=== PATIENT | female | born 1955 | race Caucasian/White ===

== ENCOUNTER 2017-08-12 16:04 | Emergency (ER) | payer SELFPAY ==
[2017-08-12] MEDS ORDERED: Glucagon,Human Recombinant 1 MG Vial IM ONE (16:39)
[2017-08-12] MEDS ORDERED: Sodium Chloride 0.9% 10 ML Syringe FLUSH PRN (16:41)
[2017-08-12] MEDS ORDERED: Nitroglycerin 0.4 MG Tab.SL SL ONE (16:41)
--- NOTE | 2017-08-12 16:44 | EDM.PDOC ---
ED HPI GENERAL MEDICAL PROBLEM - General Chief Complaint: Gastrointestinal Problem Stated Complaint: CANNOT KEEP FOOD OR WATER DOWN Time Seen by Provider: 08/12/17 16:32 Source of Information: Reports: Patient, Family, RN Notes Reviewed History Limitations: Reports: No Limitations - History of Present Illness INITIAL COMMENTS - FREE TEXT/NARRATIVE: 61-year-old female presents emergency department day complaint of chicken stuck in her throat, she was eating chicken last night felt it get stuck while she was trying to swallow is still able to swallow her secretions but any water comes right back up. Has no abdominal pain no nausea no shortness of breath or chest pain Middle Epigastric Pain Score (Numeric/FACES): 5 - Related Data Allergies Allergy/AdvReac Type Severity Reaction Status Date / Time Penicillins Allergy Intermediate Rash Verified 08/12/17 16:18 benzoin Allergy Rash Verified 08/12/17 16:18 Home Meds: Home Meds Aspirin [Rowena Chewable Aspirin] 81 mg PO DAILY 07/07/13 [History] Cyanocobalamin (Vitamin B-12) [Vitamin B-12] 1,000 mcg PO DAILY 07/07/13 [ History] Furosemide [Lasix] 20 mg PO ASDIRECTED 07/07/13 [History] Omeprazole 20 mg PO DAILY 07/07/13 [History] Simvastatin [Zocor] 20 mg PO BEDTIME 07/07/13 [History] Venlafaxine [Effexor XR] 150 mg PO DAILY 07/07/13 [History] SUMAtriptan 100 mg PO BID PRN 07/13/13 [History] Cyclobenzaprine [Flexeril] 10 mg PO Q6H PRN #30 tablet 08/05/15 [Rx] Bacitracin [Bacitracin Oint] 0 gm TOP Q4H PRN #0 tube 08/25/15 [Rx] Ondansetron [Zofran] 4 mg PO Q4H PRN 10/02/15 [History] Scopolamine [Transderm-Scop] 1 patch TOP Q72H 10/02/15 [History] traMADol [Ultram] 50 - 100 mg PO Q6H PRN 10/02/15 [History] Acetaminophen/HYDROcodone [Bates 325-5 MG] 1 - 2 tab PO Q4H PRN #50 tab [Rx] Magnesium Oxide 400 mg PO DAILY #30 tab 10/11/15 [Rx] Potassium Chloride 20 meq PO DAILY #30 tablet.er 10/11/15 [Rx] Past Medical History HEENT History: Reports: Impaired Vision Other HEENT History: wear glasses for close work and reading Cardiovascular History: Reports: Heart Murmur Gastrointestinal History: Reports: Bowel Obstruction, GERD, Hiatal Hernia Genitourinary History: Reports: UTI, Recurrent [employer] History: Reports: , Spontaneous Musculoskeletal History: Reports: Arthritis, Back Pain, Chronic Neurological History: Reports: Migraines Psychiatric History: Reports: Depression Endocrine/Metabolic History: Reports: Obesity/BMI 30+, Other (See Below) Other Endocrine/Metabolic History: diabetic befor rny Hematologic History: Reports: Anemia, Iron Deficiency Dermatologic History: Reports: Psoriasis - Infectious Disease History Infectious Disease History: Reports: MRSA Other Infectious Disease History: pt states would not know - Past Surgical History GI Surgical History: Reports: Appendectomy, Bariatric Procedure, Cholecystectomy , Colon, Colonoscopy, EGD, Hernia, Abdominal, Lysis of Adhesions, Polypectomy, Small Bowel, Other (See Below) Female Surgical History: Reports: Section, Tubal Ligation Musculoskeletal Surgical History: Reports: Other (See Below) Dermatological Surgical History: Reports: None Social & Family History - Family History HEENT: Reports: Hearing Impairment Other HEENT Family History: mom, brother and sister with hearing aids Cardiac: Reports: Bypass, CAD, High Cholesterol, Hypertension, VT, Stent Respiratory: Reports: Sleep Apnea GI: Reports: None : Reports: None OBGYN: Reports: Other (See Below) Other OBGYN Family History: mom had a hysterectomy Musculoskeletal: Reports: Arthritis Neurological: Reports: Alzheimers Disease, Migraines Psychiatric: Reports: Depression Endocrine/Metabolic: Reports: Diabetes, type II, Hypothyroidism Hematologic: Reports: None Dermatologic: Reports: Psoriasis Oncologic: Reports: Colon, Thyroid - Tobacco Use Smoking Status *Q: Unknown Ever Smoked Second Hand Smoke Exposure: No - Alcohol Use Days Per Week of Alcohol Use: 0 - Recreational Drug Use Recreational Drug Use: No ED ROS GENERAL - Review of Systems Review Of Systems: See Below Constitutional: Reports: No Symptoms HEENT: Reports: Other (Difficulty swallowing) Respiratory: Reports: No Symptoms Cardiovascular: Reports: No Symptoms GI/Abdominal: Reports: No Symptoms ED EXAM, GI/ABD - Physical Exam Exam: See Below Text/Narrative:: I did do an experiment with ice water she took about 2 swallows within approximately 1 minute she had emesis of clear liquid Exam Limited By: No Limitations General Appearance: Alert, WD/WN, No Apparent Distress Respiratory/Chest: No Respiratory Distress, Lungs Clear, Normal Breath Sounds, No Accessory Muscle Use Cardiovascular: Regular Rate, Rhythm, No Murmur GI/Abdominal Exam: Soft, Non-Tender Course - Vital Signs Last Recorded V/S: Last Vital Signs Temp 97.3 F 08/12/17 16:17 Pulse 84 08/12/17 16:17 Resp 18 08/12/17 16:17 BP 108/76 08/12/17 17:19 Pulse Ox 97 08/12/17 16:17 - Orders/Labs/Meds Orders: Active Orders 24 hr Category Date Time Status Peripheral IV Care [RC] . DIRECTED Care 08/12/17 16:41 Active Sodium Chloride 0.9% [Saline Flush] Med 08/12/17 16:41 Active 10 ml FLUSH ASDIRECTED PRN Peripheral IV Insertion Adult [OM.PC] Urgent Oth 08/12/17 16:41 Ordered Medication Orders Sodium Chloride (Saline Flush) 10 ml FLUSH ASDIRECTED PRN PRN Reason: Keep Vein Open Last Admin: 08/12/17 17:19 Dose: 10 ml Meds: Medications Generic Name Dose Route Start Last Admin Trade Name Freq PRN Reason Stop Dose Admin Sodium Chloride 10 ml 08/12/17 16:41 08/12/17 17:19 Saline Flush FLUSH 10 ml ASDIRECTED PRN Administration Keep Vein Open Discontinued Medications Generic Name Dose Route Start Last Admin Trade Name Freq PRN Reason Stop Dose Admin Glucagon 1 mg 08/12/17 16:39 08/12/17 17:19 Glucagen IM 08/12/17 16:40 1 mg ONETIME ONE Administration Nitroglycerin 0.4 mg 08/12/17 16:41 08/12/17 17:19 Nitrostat SL 08/12/17 16:42 0.4 mg ONETIME ONE Administration Departure - Departure Time of Disposition: 17:58 Disposition: Home, Self-Care 01 Condition: Good Clinical Impression: Dysphagia Qualifiers: Dysphagia type: esophageal phase Qualified Code(s): R13.10 - Dysphagia, unspecified - Discharge Information Referrals: Judy Apodaca PA-C [Primary Care Provider] - Forms: ED Department Discharge Additional Instructions: Small amounts of food per time, Please followup with your primary care provider in 3-5 days if not better, please call return to the emergency department with worsening of symptoms. - My Orders Last 24 Hours: My Active Orders 08/12/17 16:41 Peripheral IV Care [RC] . DIRECTED Sodium Chloride 0.9% [Saline Flush] 10 ml FLUSH ASDIRECTED PRN Peripheral IV Insertion Adult [OM.PC] Urgent - Assessment/Plan Last 24 Hours: My Active Orders 08/12/17 16:41 Peripheral IV Care [RC] . DIRECTED Sodium Chloride 0.9% [Saline Flush] 10 ml FLUSH ASDIRECTED PRN Peripheral IV Insertion Adult [OM.PC] Urgent Plan: Assessment Acuity = acute Site and laterality = dysphagia Etiology = probable food bolus Manifestations = none Location of injury = Home Lab values = none Plan she was able to clear this with the combination glucago and nitroglycerin and [employer] she was able to drink without difficulty, plan is to follow-up with primary care 3-5 days if no improvement This note was dictated using [employer] voice recognition software please call with any questions on syntax or zenon.
[2017-08-12 18:05] VITALS: BP 101/60
== END 2017-08-12 18:10 | disposition home or self-care (01) ==
LOC: JP.ED 16:04
DX: R13.10 Dysphagia, unspecified (principal); E66.9 Obesity, unspecified; E11.9 Type 2 diabetes mellitus without complications; K21.9 Gastro-esophageal reflux disease without esophagitis; F32.9 Major depressive disorder, single episode, unspecified; Z88.0 Allergy status to penicillin; Z88.8 Allergy status to other drugs, medicaments and biological substances; Z79.899 Other long term (current) drug therapy; Z79.82 Long term (current) use of aspirin
CPT/HCPCS: 96372; 99283; 99284; A9270; J1610; J7050

== ENCOUNTER 2017-10-07 08:03 | Day surgery (SDC) | payer OTHER ==
[2017-10-07] MEDS ORDERED: Lactated Ringers 1,000 ML IV ONE (08:30)
[2017-10-07] MEDS ORDERED: Glycopyrrolate 0.2 MG/ML 2 ML SDV IVPUSH ONE (09:00)
[2017-10-07] MEDS ORDERED: MVI, Adult with Vitamin K 10 ML, Thiamine 100 MG, Chromium/Copper/Mang/Selen/Zn 1 ML in... IV ONE ×4 (09:30)
[2017-10-07] MEDS ORDERED: Propofol 200 MG/20 ML SDV ONE (09:30)
[2017-10-07] MEDS ORDERED: Midazolam 1 MG/ML 2 ML SDV ONE (09:30)
[2017-10-07] MEDS ORDERED: fentaNYL 100 MCG/2 ML SDV ONE (09:30)
[2017-10-07] MEDS ORDERED: Cyanocobalamin (Vitamin B12) 1,000 MCG/ML SDV IM ONE (10:30)
[2017-10-07 11:39] VITALS: BP 102/67
--- NOTE | 2017-10-14 10:59 | OR ---
DATE OF PROCEDURE: 10/07/2017 PREOPERATIVE DIAGNOSIS: Postprandial upper abdominal pain. POSTOPERATIVE DIAGNOSIS: Postprandial upper abdominal pain with known normal upper GI endoscopic examination status post Hannah-en-Y gastric bypass. OPERATIVE PROCEDURE: Upper GI endoscopy. ANESTHESIA: IV sedation. INDICATION FOR PROCEDURE: A 62-year-old female presenting with some ongoing postprandial upper abdominal pain. The plan is to proceed with an upper GI endoscopy with biopsies and/or dilation as indicated. Potential risks including bleeding and perforation were discussed, and the patient wishes to proceed. DETAILS OF THE PROCEDURE: The patient was taken to the operating room, placed in a left lateral decubitus position. IV sedation was administered, after which the upper GI endoscope was passed orally through the length of the esophagus through the gastric pouch and into the gastrojejunostomy roughly 20 cm into the Hannah limb. Overall, the findings were entirely normal status post Hannah-en-Y gastric bypass. There was no inflammation, stricturing; no retained food or fluid within the GI tract examined. The scope was then withdrawn. The above findings reconfirmed, and the procedure then concluded. The patient most likely is having some symptoms of a partial small bowel obstruction related to adhesions and the plan will be to have the patient start with a regular low-residue diet, which may be helpful in that regard. Otherwise, she will be following with Judy Apodaca in 2 months. She does have a symptomatic left inguinal hernia which once she establishes some trend we will likely repair. This is the case, we certainly would be preferring not to do any additional GI tract surgery as she is presently status post with a fairly short functioning small bowel. Prashanth Gonzalez MD /[id number]
== END 2017-10-07 12:00 | disposition home or self-care (01) ==
LOC: JP.SDS 08:03
PROVIDERS: ATTEND Surgery
DX: R10.10 Upper abdominal pain, unspecified (principal); Z98.84 Bariatric surgery status; K40.90 Unilateral inguinal hernia, without obstruction or gangrene, not specified as recurrent; K21.9 Gastro-esophageal reflux disease without esophagitis
CPT/HCPCS: 43235; J2250; J2704; J3010; J3411; J3420; J7120; J3490

== ENCOUNTER 2017-11-21 12:27 | Observation (INO) | payer MEDICAID ==
--- NOTE | 2017-11-21 14:06 | EDM.PDOC ---
ED HPI GENERAL MEDICAL PROBLEM - General Chief Complaint: Gastrointestinal Problem Stated Complaint: CAN'T EAT OR DRINK ANYTHING Time Seen by Provider: 11/21/17 12:49 Source of Information: Reports: Patient, Family, RN Notes Reviewed History Limitations: Reports: No Limitations - History of Present Illness INITIAL COMMENTS - FREE TEXT/NARRATIVE: 62-year-old female presents emergency department today with complaint of difficulty swallowing, known history of gastric bypass she had eaten last night piece of sausage after eating she's had difficulty swallowing she is able to swallow her own secretions but nothing else - Related Data Allergies Allergy/AdvReac Type Severity Reaction Status Date / Time Penicillins Allergy Intermediate Rash Verified 11/21/17 13:43 benzoin Allergy Rash Verified 11/21/17 13:43 Home Meds: Home Meds Aspirin [Rowena Chewable Aspirin] 81 mg PO DAILY 07/07/13 [History] Cyanocobalamin (Vitamin B-12) [Vitamin B-12] 1,000 mcg PO DAILY 07/07/13 [ History] Furosemide [Lasix] 20 mg PO ASDIRECTED 07/07/13 [History] Omeprazole 20 mg PO DAILY 07/07/13 [History] Simvastatin [Zocor] 20 mg PO BEDTIME 07/07/13 [History] Venlafaxine [Effexor XR] 150 mg PO DAILY 07/07/13 [History] SUMAtriptan 100 mg PO BID PRN 07/13/13 [History] Cyclobenzaprine [Flexeril] 10 mg PO Q6H PRN #30 tablet 08/05/15 [Rx] Bacitracin [Bacitracin Oint] 0 gm TOP Q4H PRN #0 tube 08/25/15 [Rx] traMADol [Ultram] 50 - 100 mg PO Q6H PRN 10/02/15 [History] Magnesium Oxide 400 mg PO DAILY #30 tab 10/11/15 [Rx] Potassium Chloride 20 meq PO DAILY #30 tablet.er 10/11/15 [Rx] Acetaminophen [Acetaminophen 8 Hour] 650 mg PO Q6H PRN 10/03/17 [History] Betamethasone Valerate [Valisone 0.1% Crm] 1 gm TOP TID PRN 10/03/17 [History] Calcium Carbonate/Vitamin D3 [Calcium 500 + Vit D 400] 1 each PO DAILY 10/03/17 [History] Cholecalciferol (Vitamin D3) [Vitamin D3] 5,000 unit PO DAILY 10/03/17 [History] Diclofenac Sodium [Voltaren] 2 gm TP BID 10/03/17 [History] Diphenoxylate HCl/Atropine [Lomotil Tablet] 1 each PO BID 10/03/17 [History] Ferrous Fumarate 63 mg PO DAILY 10/03/17 [History] Fluticasone Propionate [Flonase Allergy Relief] 50 mcg NS DAILY 10/03/17 [ History] Hyoscyamine [Levsin] 0.125 mg SL Q4HR PRN 10/03/17 [History] Magnesium Oxide [Magnesium] 400 mg PO BID 10/03/17 [History] PARoxetine [Paxil] 20 mg PO DAILY 10/03/17 [History] Pediatric Multivit #31/Iron/Fa [Gnp Children's Chewables] 1 each PO DAILY [History] Vitamin B Complex [B Complex] 1 each PO DAILY 10/03/17 [History] Past Medical History HEENT History: Reports: Allergic Rhinitis, Impaired Vision Other HEENT History: wear glasses for close work and reading Cardiovascular History: Reports: Heart Murmur, High Cholesterol Gastrointestinal History: Reports: Bowel Obstruction, Chronic Diarrhea, GERD, Hiatal Hernia Genitourinary History: Reports: UTI, Recurrent [employer] History: Reports: , Spontaneous Musculoskeletal History: Reports: Back Pain, Chronic, Osteoarthritis Neurological History: Reports: Migraines Psychiatric History: Reports: Depression Endocrine/Metabolic History: Reports: Diabetes, Type II, Obesity/BMI 30+, Other (See Below) Other Endocrine/Metabolic History: diabetic befor rny Hematologic History: Reports: Anemia, Iron Deficiency Dermatologic History: Reports: Psoriasis - Infectious Disease History Infectious Disease History: Reports: Chicken Pox Other Infectious Disease History: pt states would not know - Past Surgical History HEENT Surgical History: Reports: None Cardiovascular Surgical History: Reports: None GI Surgical History: Reports: Appendectomy, Bariatric Procedure, Cholecystectomy , Colon, Colonoscopy, EGD, Hernia, Abdominal, Lysis of Adhesions, Polypectomy, Small Bowel Female Surgical History: Reports: Section, Tubal Ligation Endocrine Surgical History: Reports: None Neurological Surgical History: Reports: None Musculoskeletal Surgical History: Reports: Other (See Below) Other Musculoskeletal Surgeries/Procedures:: toe surgery Dermatological Surgical History: Reports: None Social & Family History - Family History HEENT: Reports: Hearing Impairment Other HEENT Family History: mom, brother and sister with hearing aids Cardiac: Reports: Bypass, CAD, High Cholesterol, Hypertension, CA, Stent Respiratory: Reports: Sleep Apnea GI: Reports: None : Reports: None OBGYN: Reports: Other (See Below) Other OBGYN Family History: mom had a hysterectomy Musculoskeletal: Reports: Arthritis Neurological: Reports: Alzheimers Disease, Migraines Psychiatric: Reports: Depression Endocrine/Metabolic: Reports: Diabetes, type II, Hypothyroidism Hematologic: Reports: None Dermatologic: Reports: Psoriasis Oncologic: Reports: Colon, Thyroid - Tobacco Use Smoking Status *Q: Never Smoker - Caffeine Use Caffeine Use: Reports: Coffee - Recreational Drug Use Recreational Drug Use: No ED ROS GENERAL - Review of Systems Review Of Systems: See Below Constitutional: Reports: No Symptoms Respiratory: Reports: No Symptoms Cardiovascular: Reports: No Symptoms GI/Abdominal: Reports: Difficulty Swallowing, Nausea, Vomiting : Reports: No Symptoms ED EXAM, GI/ABD - Physical Exam Exam: See Below Text/Narrative:: Could not swallow sit of ice water without vomiting Exam Limited By: No Limitations General Appearance: Alert, WD/WN, No Apparent Distress Respiratory/Chest: No Respiratory Distress, Lungs Clear, Normal Breath Sounds, No Accessory Muscle Use Cardiovascular: Regular Rate, Rhythm, No Murmur GI/Abdominal Exam: Soft, Non-Tender Course - Vital Signs Last Recorded V/S: Last Vital Signs Temp 97.1 F 11/21/17 13:53 Pulse 100 11/21/17 13:53 Resp 16 11/21/17 13:53 BP 116/71 11/21/17 13:53 Pulse Ox 98 11/21/17 13:53 Departure - Departure Time of Disposition: 14:07 Disposition: Admitted As Inpatient 68 Condition: Fair Clinical Impression: Dysphagia Qualifiers: Dysphagia type: esophageal phase Qualified Code(s): R13.10 - Dysphagia, unspecified - Discharge Information Referrals: PCP,None [Primary Care Provider] - - Assessment/Plan Plan: Assessment Acuity = acute Site and laterality = difficulty swallowing Etiology = unclear etiology Manifestations = none Location of injury = Home Lab values = none Plan Called discussed case Dr. Gonzalez general surgery recommended admission followed by EGD with dilation he will evaluate patient in the hospital This note was dictated using [employer] voice recognition software please call with any questions on syntax or grammar.
[2017-11-21] MEDS ORDERED: Acetaminophen 650 MG in Premix Bag 1 BAG IV ONE ×2 (14:08→14:30)
[2017-11-21] MEDS ORDERED: Sodium Chloride 0.9% 10 ML Syringe FLUSH PRN (14:08)
[2017-11-21] MEDS ORDERED: Morphine 2 MG/ML Syringe IVPUSH PRN (14:09)
[2017-11-21] MEDS ORDERED: Ondansetron 4 MG/2 ML SDV IV PRN (14:09)
[2017-11-21] MEDS ORDERED: Hyoscyamine 0.125 MG Tab.SL SL PRN (14:12)
[2017-11-21] MEDS: traMADol 50 MG Tab PO PRN (17:26)
[2017-11-21] MEDS: Magnesium Oxide 400 MG Tab PO SCH (20:19)
[2017-11-21] MEDS ORDERED: Non-Formulary Medication 1 Each (Magnesium Oxide [Magnesium] 400 MG) PO SCH (21:00)
[2017-11-21] MEDS ORDERED: Simvastatin 20 MG Tab PO SCH (21:00)
[2017-11-21] MEDS: Lactated Ringers 1,000 ML IV SCH (23:08)
[2017-11-22] MEDS: traMADol 50 MG Tab PO PRN (04:11)
[2017-11-22] MEDS: Lactated Ringers 1,000 ML IV SCH (07:05)
[2017-11-22] MEDS ORDERED: Pantoprazole 40 MG Tab.CR PO SCH (07:30)
[2017-11-22] MEDS ORDERED: Potassium Chloride 20 MEQ Tab.ER PO SCH (08:00)
[2017-11-22] MEDS ORDERED: Midazolam 1 MG/ML 2 ML SDV ONE (08:02)
[2017-11-22] MEDS ORDERED: fentaNYL 100 MCG/2 ML SDV ONE (08:02)
[2017-11-22] MEDS ORDERED: Propofol 200 MG/20 ML SDV ONE (08:02)
[2017-11-22] MEDS ORDERED: Glycopyrrolate 0.2 MG/ML 2 ML SDV IV ONE (08:30)
[2017-11-22] MEDS ORDERED: Fluticasone Propionate Nasal Spray 16 GM Bottle NASBOTH SCH (09:00)
[2017-11-22] MEDS ORDERED: Magnesium Oxide 400 MG Tab PO SCH (09:00)
[2017-11-22] MEDS ORDERED: PARoxetine 20 MG Tab PO SCH (09:00)
[2017-11-22] MEDS ORDERED: Venlafaxine 75 MG Cap.ER PO SCH (09:00)
[2017-11-22] MEDS ORDERED: Ferrous Sulfate 325 MG Tab PO SCH (09:00)
[2017-11-22] MEDS ORDERED: Vitamin B Complex Tab PO SCH (09:00)
[2017-11-22] MEDS ORDERED: Furosemide 20 MG Tab PO SCH (09:00)
[2017-11-22] MEDS: Magnesium Oxide 400 MG Tab PO SCH (10:50)
[2017-11-22 11:26] VITALS: BP 107/50
--- NOTE | 2017-11-22 15:36 | PN ---
DATE OF SERVICE: 11/22/2017 SUBJECTIVE: The patient was admitted overnight with apparently obstructing food bolus. She was eating some meat which apparently got caught in the area of the gastric pouch and she presented not able to take anything orally. Overnight plan will be to proceed with an upper endoscopy with biopsy, dilation, and/or removal of foreign body as indicated. Potential risks were reviewed with the patient and she wishes to proceed. Her labs look good. We will check a B12, folate, and ferritin level to make sure that there is not something that is needed to be corrected while she is in the hospital. Prashanth Gonzalez MD /[id number]
--- NOTE | 2017-12-01 12:52 | OR ---
DATE OF PROCEDURE: 11/22/2017 PREOPERATIVE DIAGNOSIS: Foreign body lodged at gastrojejunostomy. POSTOPERATIVE DIAGNOSES: Foreign body previously lodged at gastrojejunostomy spontaneously cleared with associated mild stricture of gastrojejunostomy. OPERATIVE PROCEDURE: Upper GI endoscopy with dilation of gastrojejunostomy ([id number]). ANESTHESIA: IV sedation. INDICATION FOR PROCEDURE: The patient was admitted overnight with a meat bolus obstructing her gastrojejunostomy. The plan was to proceed with upper GI endoscopy with removal of the foreign body and biopsies as indicated. The potential risks including bleeding and perforation were discussed, and the patient wishes to proceed. DETAILS OF PROCEDURE: The patient was taken to the operating room and placed in a left lateral decubitus position. IV sedation was administered, after which the upper GI endoscope was passed orally through the length of the esophagus and into the area of the gastric pouch. The fluid bolus which had previously been present was now absent. The patient did have a slight stricturing of the gastrojejunostomy. A Bard gastrointestinal balloon catheter was then centered across the anastomosis and inflated to 54-Bermudian size. This was held in position for 1 minute, after which, the balloon catheter was deflated and withdrawn. There was a very small amount of heme present indicating a slight degree of dilation that occurred. No complications were evident. The scope was then withdrawn and the procedure was then concluded. The patient was taken to the recovery room in a satisfactory condition. Prashanth Gonzalez MD /[id number]
== END 2017-11-22 13:25 | disposition home or self-care (01) ==
LOC: JP.ED 12:27 → JP.MS 14:09
PROVIDERS: ADMIT Surgery; ATTEND Surgery
DX: T18.9XXA Foreign body of alimentary tract, part unspecified, initial encounter (principal); K31.89 Other diseases of stomach and duodenum; J30.9 Allergic rhinitis, unspecified; K21.9 Gastro-esophageal reflux disease without esophagitis; K44.9 Diaphragmatic hernia without obstruction or gangrene; M19.90 Unspecified osteoarthritis, unspecified site; E11.9 Type 2 diabetes mellitus without complications; E66.9 Obesity, unspecified; E78.00 Pure hypercholesterolemia, unspecified; D50.9 Iron deficiency anemia, unspecified; Z79.82 Long term (current) use of aspirin; Z79.899 Other long term (current) drug therapy; Z88.0 Allergy status to penicillin; Z88.8 Allergy status to other drugs, medicaments and biological substances; Z98.84 Bariatric surgery status; Z98.890 Other specified postprocedural states
CPT/HCPCS: 36415; 43245; 80048; 82607; 82728; 82746; 83735; 84100; 85025; 99285; A9270; J0131; J2250; J2405; J2704; J3010; J7120; 99283

== ENCOUNTER 2017-11-24 07:00 | Inpatient (IN) | payer MEDICAID ==
[2017-11-24] MEDS ORDERED: Midazolam 1 MG/ML 2 ML SDV ONE (07:12)
[2017-11-24] MEDS ORDERED: fentaNYL 100 MCG/2 ML SDV ONE (07:12)
[2017-11-24] MEDS ORDERED: Propofol 200 MG/20 ML SDV ONE ×3 (07:13→09:08)
[2017-11-24] MEDS ORDERED: Acetaminophen 500 MG Tab PO ONE (07:30)
[2017-11-24] MEDS ORDERED: Meropenem 500 MG SDV ONE (07:44)
[2017-11-24] MEDS ORDERED: Lidocaine 1% with EPINEPHrine 1:100,000 50 ML MDV ONE (07:44)
[2017-11-24] MEDS ORDERED: Bupivacaine 0.5% 50 ML MDV ONE (07:44)
[2017-11-24] MEDS ORDERED: Dextrose 5%-Lactated Ringers 1,000 ML IV SCH ×2 (07:45→12:00)
[2017-11-24] MEDS ORDERED: ceFAZolin 2 GM in Premix Bag 1 BAG IV ONE (08:15)
[2017-11-24] MEDS ORDERED: Lidocaine 1% 2 ML ONE (08:28)
[2017-11-24] MEDS ORDERED: Ketorolac 60 MG/2 ML SDV IM ONE (09:52)
[2017-11-24] MEDS ORDERED: Ondansetron 4 MG/2 ML SDV IVPUSH PRN (11:57)
[2017-11-24] MEDS ORDERED: Cyclobenzaprine 10 MG Tab PO PRN (11:59)
[2017-11-24] MEDS ORDERED: Atropine/Diphenoxylate 0.025-2.5 MG Tab PO PRN (12:00)
[2017-11-24] MEDS: Acetaminophen/oxyCODONE 325-5 MG Tab PO PRN ×3 (12:46→20:57)
[2017-11-24] MEDS: ceFAZolin 2 GM in Premix Bag 1 BAG IV SCH ×2 (17:06→23:07)
[2017-11-25] MEDS: Acetaminophen/oxyCODONE 325-5 MG Tab PO PRN ×4 (02:10→14:50)
[2017-11-25] MEDS: ceFAZolin 2 GM in Premix Bag 1 BAG IV SCH (07:10)
[2017-11-25] MEDS ORDERED: Pantoprazole 40 MG Tab.CR PO SCH (07:30)
[2017-11-25] MEDS ORDERED: Furosemide 20 MG Tab PO SCH (09:00)
[2017-11-25] MEDS ORDERED: Aspirin 81 MG Tab.EC PO SCH (09:00)
[2017-11-25] MEDS ORDERED: Venlafaxine 75 MG Cap.ER PO SCH (09:00)
[2017-11-25] MEDS ORDERED: PARoxetine 20 MG Tab PO SCH (09:00)
[2017-11-25] MEDS ORDERED: Magnesium Hydroxide 400 MG/5 ML Susp 30 ML Cup PO PRN (09:18)
--- NOTE | 2017-11-25 11:39 | DISCH ---
ADMISSION DIAGNOSES: 1. Incarcerated incisional hernia, a direct separate left inguinal hernia, and left inguinal nerve entrapment by scar. 2. Status post Hannah-en-Y gastric bypass surgery. 3. Unspecified surgical malabsorption. 4. B12 deficiency. 5. Joint pain. 6. Vitamin D deficiency. 7. Chronic back pain. 8. Depression. 9. Dysmetabolic syndrome X. 10.Hypercholesterolemia. 11.Hyponatremia. 12.Migraine headaches. 13.Osteoarthritis of right knee. DISCHARGE DIAGNOSES: Open repair of incarcerated incisional hernia, separate left inguinal hernia, direct, and left ilioinguinal nerve entrapment by scar. Date of surgery, 11/24/2017. HISTORY: Blanche Lee is a 62-year-old female with an incarcerated incisional hernia with increasing pain. After preoperative evaluation and discussion of possible risks and possible complications, she wished to proceed with surgical procedure. HOSPITAL COURSE: Blanche had her surgery on 11/24/2017. She had no operative complications. On postoperative day #1, her pain was managed. Her activity was good. Vital signs were stable. She was able to be discharged to home without any complications. PHYSICAL EXAMINATION: GENERAL: Blanche Lee is a 62-year-old female. Alert and orientated. SKIN: Warm and dry. Color good. VITAL SIGNS: Height is 5 feet 4 inches. Weight is 177 pounds. TPR is 98.5, 68, 16, and blood pressure 126/63. HEENT: Negative. NECK: Supple. HEART: Regular rate and rhythm. LUNGS: Clear. ABDOMEN: Soft and nontender. Occlusive dressing is on left inguinal hernia area. Wound is stapled. EXTREMITIES: Without peripheral edema. DISPOSITION: Discharged to home. CONDITION: Stable and improving. FOLLOWUP APPOINTMENT: With Judy Apodaca PA-C, at [facility] on 12/05/2017 at 10 a.m. DISCHARGE MEDICATIONS: Home Medications: 1. Percocet 5/325 mg 1 to 2 every 4 hours p.r.n. pain, #40. 2. Milk of magnesia 30 mL, two, to take one daily. Two were sent home with the patient. She is to resume her home medications of; 1. Aspirin 81 mg p.o. daily. 2. Bactrim ointment use as directed. 3. Valisone 0.1% cream topical, 3 times daily for itching. 4. Calcium carbonate-vitamin D3 one daily. 5. Vitamin D3 5000 international units daily. 6. Vitamin B12 1000 mcg sublingual daily. 7. Flexeril 10 mg q.6 hours p.r.n. muscle spasm. 8. Voltaren one applicator topical twice daily. 9. Lomotil one twice daily p.r.n. 10.Ferrous fumarate 63 mg oral daily. 11.Flonase 50 mcg oral daily as needed for allergies. 12.Lasix 20 mg one q.48 hours. 13.Levsin 0.125 mg sublingual every 4 hours p.r.n., esophageal spasms. 14.Magnesium oxide oral twice daily. 15.Omeprazole 20 mg oral daily. 16.Paxil 20 mg oral daily. 17.Pediatric multivitamin chewable one daily. 18.Potassium chloride 20 mEq daily. 19.Sumatriptan 100 mg oral twice daily p.r.n. migraine headache. 20.Simvastatin 20 mg oral at bedtime. 21.Venlafaxine XR 150 mg oral daily. 22.Vitamin B complex one daily. 23.Tramadol 50 to 100 mg every 6 hours p.r.n. pain. DISCHARGE DIET: Drink 8 to 10 glasses of water a day. GI soft, low-residue diet, low- fiber. ACTIVITY: Activity after discharge, no lifting greater than 10 pounds for 6 weeks. Driving, do not drive while on pain medication. Shower/bathing, may shower. DISCHARGE INSTRUCTIONS: Notify provider if any fever, increased pain, nausea, or vomiting. Wound incision care, keep site clean and dry. Take dressing off on 11/26/2017. Special instruction, use incentive spirometer 10 times every hour while awake.
[2017-11-25 13:44] VITALS: BP 111/60
[2017-11-25] MEDS ORDERED: Acetaminophen/oxyCODONE 325-5 MG Tab PO ONE (15:00)
--- NOTE | 2017-12-08 13:00 | OR ---
DATE OF PROCEDURE: 11/24/2017 PREOPERATIVE DIAGNOSIS: Symptomatic left inguinal hernia. POSTOPERATIVE DIAGNOSES: 1. Incarcerated left inguinal hernia. 2. Separate incarcerated incisional hernia. 3. Left ilioinguinal nerve at risk for entrapment by scarring, chronic neuropathic pain. PROCEDURE PERFORMED: 1. Open repair of incarcerated left inguinal hernia with mesh (22529). 2. Repair of incarcerated incisional hernia with mesh (41140, 63932). 3. Division of the left ilioinguinal nerve (84133). ANESTHESIA: General local plus IV sedation. INDICATION FOR PROCEDURE: This is a 62-year-old presenting with symptomatic left inguinal hernia. She also has a lower midline incision, which seems to intersect with that area, so she may have some additional separate incisional hernias as well. Plan is to proceed with repair of the hernias with mesh. Potential risks of the procedure including bleeding, infection, injury to underlying viscera, problems with chronic pain following the procedure with the mesh becoming infected or the hernias recurring were all reviewed, and the patient wishes to proceed. She is also made aware that quite often with a mesh technique, the ilioinguinal nerve and sometimes the iliohypogastric nerve will be in the field of mesh and felt thus to be divided to avoid postop neuropathic pain increasing the risks of pain, with some area of anesthesia in that distribution. DETAILS OF PROCEDURE: The patient was taken to the operating room, placed in supine position. After IV sedation was administered, the abdomen and groin areas were prepped and draped. The left inguinal area was then anesthetized with 1% lidocaine mixed with Marcaine, and a standard inguinal incision was made beginning at the level of pubic tubercle medially and extending laterally toward the anterior-superior iliac spine. This was carried down through the skin and subcutaneous tissue and through the external oblique aponeurosis, subaponeurotic flaps were then raised. The patient on inspection was found to have two hernias, one was a direct inguinal hernia and medially there was also a small incarcerated incisional hernia. The direct inguinal hernia also had incarcerated component consisting of some perivesical fat. Initially transversalis fascia over the inguinal hernia was divided and this area had been reduced and an extra large mesh plug was placed into that defect. It was affixed to Triston ligament with some titanium tacking screws and the underside of the conjoined tendon medially, laterally and superiorly with horizontal mattress sutures of 0 Vicryl stitch. The smaller incarcerated incisional hernia was then also reduced with similar division of the transversalis fascia. A large left plug was placed into that defect and fixed similarly to the pubic tubercle and the Triston ligament somewhat lateral from that and to the underside of the rectus and conjoint tendon of the fascia muscle with horizontal mattress sutures as well. The ilioinguinal nerve was felt to likely cross over the flat portion of the mesh plug system and this was then divided in the far lateral aspect of the incision. The flat portion of mesh plug system was placed across both areas of the repair and fixed to pubic tubercle medially. The round ligament in this case was divided to allow complete closure of the conjoined tendon to the shelving portion of the inguinal ligament and over this the external oblique aponeurosis was then also approximated with a 3-0 Vicryl stitch and the skin with murali. Dressing was applied. The patient was taken to the recovery room in satisfactory condition. Prashanth Gonzalez MD /[id number]
== END 2017-11-25 15:00 | disposition home or self-care (01) | DRG 351 ==
LOC: JP.SDSSCHI 07:00 → JP.SDS 07:00 → EDSTATUS 08:00 → JP.2SS 10:15
PROVIDERS: ADMIT Surgery; ATTEND Surgery
PROC: 0WQF0ZZ Repair Abdominal Wall, Open Approach (ICD-10-PCS; principal; 2017-11-24)
PROC: 0YQ60ZZ Repair Left Inguinal Region, Open Approach (ICD-10-PCS; 2017-11-24)
PROC: 018B0ZZ Division of Lumbar Nerve, Open Approach (ICD-10-PCS; 2017-11-24)
DX: K40.30 Unilateral inguinal hernia, with obstruction, without gangrene, not specified as recurrent (principal); K43.0 Incisional hernia with obstruction, without gangrene; K91.2 Postsurgical malabsorption, not elsewhere classified; G57.82 Other specified mononeuropathies of left lower limb; E55.9 Vitamin D deficiency, unspecified; E53.8 Deficiency of other specified B group vitamins; Z98.84 Bariatric surgery status; Z98.0 Intestinal bypass and anastomosis status; E78.00 Pure hypercholesterolemia, unspecified; K21.9 Gastro-esophageal reflux disease without esophagitis; M54.9 Dorsalgia, unspecified; G89.29 Other chronic pain; F32.9 Major depressive disorder, single episode, unspecified; G43.909 Migraine, unspecified, not intractable, without status migrainosus; Z87.440 Personal history of urinary (tract) infections; H54.7 Unspecified visual loss; Z88.0 Allergy status to penicillin; Z88.8 Allergy status to other drugs, medicaments and biological substances; Z79.82 Long term (current) use of aspirin; D50.9 Iron deficiency anemia, unspecified; Z86.39 Personal history of other endocrine, nutritional and metabolic disease; E88.81 Metabolic syndrome and other insulin resistance; M25.50 Pain in unspecified joint; M17.11 Unilateral primary osteoarthritis, right knee
CPT/HCPCS: 88302; 94762; A9270-GY; C1781; J0690; J1885; J2001; J2185; J2250; J2405; J2704; J3010; J3490; J7042

== ENCOUNTER 2018-01-16 08:12 | Day surgery (SDC) | payer MEDICAID ==
[2018-01-16] MEDS ORDERED: Acetaminophen 500 MG Tab PO ONE (08:15)
[2018-01-16] MEDS: Dextrose 5%-Lactated Ringers 1,000 ML IV SCH ×3 (08:44→23:28)
[2018-01-16] MEDS ORDERED: Bupivacaine 0.5% 50 ML MDV ONE (09:05)
[2018-01-16] MEDS ORDERED: Lidocaine 1% with EPINEPHrine 1:100,000 50 ML MDV ONE (09:05)
[2018-01-16] MEDS ORDERED: ceFAZolin 2 GM in Sodium Chloride 0.9% 50 ML IV ONE (09:30)
[2018-01-16] MEDS ORDERED: ceFAZolin 2 GM in Sodium Chloride 0.9% 100 ML IV ONE (09:30)
[2018-01-16] MEDS ORDERED: Propofol 200 MG/20 ML SDV ONE ×2 (09:49→10:43)
[2018-01-16] MEDS ORDERED: Midazolam 1 MG/ML 2 ML SDV ONE (09:49)
[2018-01-16] MEDS ORDERED: fentaNYL 100 MCG/2 ML SDV ONE (09:49)
[2018-01-16] MEDS ORDERED: Ropivacaine 40 ML, Dexamethasone 8 MG, EPINEPHrine 0.4 MG, Sodium Chloride 0.9% 37.6 ML NERVRT SCH ×4 (10:00)
[2018-01-16] MEDS ORDERED: Ketamine 500 MG/5 ML MDV IV SCH (10:00)
[2018-01-16] MEDS ORDERED: Linezolid 200 MG/100 ML Bag IRR ONE (11:01)
[2018-01-16] MEDS ORDERED: fentaNYL 100 MCG/2 ML SDV IVPUSH ONE (11:45)
[2018-01-16] MEDS ORDERED: Hyoscyamine 0.125 MG Tab.SL SL PRN (12:42)
[2018-01-16] MEDS ORDERED: Ondansetron 4 MG/2 ML SDV IVPUSH PRN (12:42)
[2018-01-16] MEDS ORDERED: Atropine/Diphenoxylate 0.025-2.5 MG Tab PO PRN (12:43)
[2018-01-16] MEDS ORDERED: Cyclobenzaprine 10 MG Tab PO PRN (12:43)
[2018-01-16] MEDS: Acetaminophen/oxyCODONE 325-5 MG Tab PO PRN ×3 (13:32→23:22)
[2018-01-16] MEDS: Pantoprazole 40 MG Tab.CR PO SCH (13:45)
[2018-01-16] MEDS: PARoxetine 20 MG Tab PO SCH (13:45)
[2018-01-16] MEDS ORDERED: Furosemide 20 MG Tab PO ONE (14:00)
[2018-01-16] MEDS: ceFAZolin 2 GM in Sodium Chloride 0.9% 50 ML IV SCH (18:24)
[2018-01-17] MEDS: ceFAZolin 2 GM in Sodium Chloride 0.9% 50 ML IV SCH ×2 (00:34→08:20)
[2018-01-17] MEDS: Acetaminophen/oxyCODONE 325-5 MG Tab PO PRN ×2 (04:58→09:08)
[2018-01-17] MEDS: Pantoprazole 40 MG Tab.CR PO SCH (08:17)
[2018-01-17] MEDS: PARoxetine 20 MG Tab PO SCH (08:17)
[2018-01-17 08:25] VITALS: BP 102/45
[2018-01-17] MEDS ORDERED: Aspirin 81 MG Tab.EC PO SCH (09:00)
[2018-01-18] MEDS ORDERED: Furosemide 20 MG Tab PO SCH (09:00)
--- NOTE | 2018-01-20 08:36 | DISCH ---
FINAL DIAGNOSES: 1. Combined right inguinal hernia and recurrent incisional hernia in the lower midline incision. 2. Right ilioinguinal nerve at risk for nerve entrapment by a scar. 3. Bariatric surgery status. OPERATIVE PROCEDURES: Done on 01/16 is open repair of right inguinal and recurrent incisional hernias with mesh and division of right ilioinguinal nerve. SUMMARY: This is a 62-year-old female presenting with new onset of a right inguinal hernia. At the time of the exploration, she was noted to have a component of a right inguinal hernia as well as some recurrence of the lower midline incisional hernia that previously had been repaired. These were both repaired with mesh plug technique, and the right ilioinguinal nerve was divided so as to avoid problems with postoperative neuropathic pain. Postoperatively, no major problems were noted. She will be resuming her usual diet and she will be sent home on Percocet 5/325 mg 1 to 2 tablets q.4 hours p.r.n. pain, #50. Otherwise, the patient will be on usual home medications. Follow up with Dr. Gonzalez in [facility] will be on 01/28/2018.
--- NOTE | 2018-01-22 14:03 | OR ---
DATE OF PROCEDURE: 01/16/2018 PREOPERATIVE DIAGNOSIS: Right inguinal hernia. POSTOPERATIVE DIAGNOSES: 1. Right inguinal hernia. 2. Recurrent incisional hernia adjacent to inguinal hernia involving lower midline incision. 3. Right ilioinguinal nerve at risk for scar entrapment. OPERATIVE PROCEDURES: 1. Open repair of right inguinal hernia with mesh plug technique (76610). 2. Repair of recurrent incisional hernia with mesh (11896 and 09085). 3. Division of right ilioinguinal nerve (36497). ANESTHESIA: Local plus IV sedation. INDICATION FOR PROCEDURE: The patient presents with some increasing discomfort and evident inguinal hernia located on the right side. The patient is status post previous left inguinal hernia repair. Plan is to proceed with an inguinal exploration and repair of the hernia, that we will often encounter ilioinguinal nerve in the plane where the mesh would be applied, which may result in chronic pain due to entrapment by scar associated with the reaction to the mesh, was gone over and that we will often divide the ilioinguinal nerve, which would result in anesthesia in that area, but avoid problems with postoperative neuropathic pain. Otherwise, potential risks including bleeding, infection, injury to underlying viscera, recurrence of the hernia, problems with the mesh becoming infected were all reviewed, and the patient wishes to proceed. DETAILS OF PROCEDURE: The patient was taken to the operating room and placed in a supine position. After IV sedation was administered, the lower abdomen and groin areas were prepped and draped, a standard right inguinal incision was made and carried down through the skin and subcutaneous tissue. The patient was noted to have a direct-type inguinal hernia. This merged more or less toward the midline where the patient and a lower midline incision and had a component of an incisional hernia as well which more or less merged with the direct inguinal hernia. The transversalis fascia over these hernias were then incised and an extra-large mesh plug was then selected and placed into the defect. This was affixed to Triston's ligament with titanium tacking screws and to the midline fascia that the medial edge of the incisional hernia with some horizontal mattress of 0 Vicryl stitch, then to the conjoined tendon superiorly and laterally with the same sutures. Once this was in place, the conjoined tendon was then closed down to the shelving portion of the inguinal ligament. This continued all the way to the pubic tubercle given the medially-located incisional hernia as well. The ilioinguinal nerve was then going to be directly over the site of the mesh. The patient did have some previous mesh, which was initially divided in an area just to the right of the midline, and this was then reinforced along with additional flat portion of the mesh plug system over the entire inguinal floor. The right ilioinguinal nerve was divided in the far-lateral aspect of the incision. The external oblique aponeurosis was then approximated with a 3-0 Vicryl stitch as was Mara's fascia, and the skin closed with 4-0 Vicryl subcuticular stitch. Dressing was applied. The patient was taken to the recovery room in a satisfactory condition. Prashanth Gonzalez MD /[id number]
== END 2018-01-17 11:46 | disposition home or self-care (01) ==
LOC: JP.SDS 08:12 → JP.MS 11:30 → JP.SDS 01-17 11:46
PROVIDERS: ATTEND Surgery
DX: K40.90 Unilateral inguinal hernia, without obstruction or gangrene, not specified as recurrent (principal); K43.2 Incisional hernia without obstruction or gangrene; K91.2 Postsurgical malabsorption, not elsewhere classified; E11.9 Type 2 diabetes mellitus without complications; K21.9 Gastro-esophageal reflux disease without esophagitis; E78.00 Pure hypercholesterolemia, unspecified; E66.01 Morbid (severe) obesity due to excess calories; Z68.30 Body mass index [BMI] 30.0-30.9, adult; D51.0 Vitamin B12 deficiency anemia due to intrinsic factor deficiency; E78.5 Hyperlipidemia, unspecified; D64.9 Anemia, unspecified; G89.29 Other chronic pain; M54.5 Low back pain; F32.9 Major depressive disorder, single episode, unspecified; Z98.84 Bariatric surgery status; Z79.82 Long term (current) use of aspirin; Z79.899 Other long term (current) drug therapy; Z88.0 Allergy status to penicillin; Z88.8 Allergy status to other drugs, medicaments and biological substances
CPT/HCPCS: 49505; 49565; 49568; 64772; 88302; 94762; A9270; C1781; J0690; J2020; J2250; J2704; J3010; J3490; J7042; J7050

== ENCOUNTER 2019-03-09 06:23 | Day surgery (SDC) | payer BC, MEDICAID ==
[2019-03-09] MEDS ORDERED: ceFAZolin 2 GM in Premix Bag 1 BAG IV ONE (06:29)
[2019-03-09] MEDS ORDERED: Acetaminophen 500 MG Tab PO ONE (06:30)
[2019-03-09] MEDS ORDERED: Dextrose 5%-Lactated Ringers 1,000 ML IV SCH (06:30)
[2019-03-09] MEDS ORDERED: fentaNYL 250 MCG/5 ML SDV ONE ×2 (06:55→07:47)
[2019-03-09] MEDS ORDERED: Glycopyrrolate 0.2 MG/ML 5 ML MDV ONE ×2 (06:56→07:48)
[2019-03-09] MEDS ORDERED: Dexamethasone 4 MG/ML SDV ONE ×2 (06:56→07:48)
[2019-03-09] MEDS ORDERED: Ondansetron 4 MG/2 ML SDV ONE ×2 (06:56→07:48)
[2019-03-09] MEDS ORDERED: Propofol 200 MG/20 ML SDV ONE ×2 (06:56→07:48)
[2019-03-09] MEDS ORDERED: Midazolam 1 MG/ML 2 ML SDV ONE (06:56)
[2019-03-09] MEDS ORDERED: Rocuronium 50 MG/5 ML Vial ONE ×2 (06:56→07:48)
[2019-03-09] MEDS ORDERED: Neostigmine Methylsulfate 1 MG/ML 5 ML Syringe ONE ×2 (06:56→07:48)
[2019-03-09] MEDS ORDERED: Scopolamine 1.5 MG Transdermal Patch TOP ONE (07:17)
[2019-03-09] MEDS ORDERED: Bupivacaine 0.5%/EPINEPHrine 1:200,000 50 ML MDV ONE (07:45)
[2019-03-09] MEDS ORDERED: Meropenem 500 MG SDV ONE (07:45)
[2019-03-09] MEDS ORDERED: Droperidol 5 MG/2 ML SDV ONE (09:36)
[2019-03-09] MEDS ORDERED: Ketorolac 60 MG/2 ML SDV ONE (10:20)
[2019-03-09] MEDS ORDERED: Lactated Ringers 1,000 ML ONE (10:36)
[2019-03-09] MEDS ORDERED: Ondansetron 4 MG/2 ML SDV IVPUSH PRN (12:18)
[2019-03-09] MEDS ORDERED: Cyclobenzaprine 10 MG Tab PO PRN (12:18)
[2019-03-09] MEDS ORDERED: SUMAtriptan 50 MG Tab PO PRN (12:19)
[2019-03-09] MEDS ORDERED: Atropine/Diphenoxylate 0.025-2.5 MG Tab PO PRN (12:34)
[2019-03-09] MEDS ORDERED: Hyoscyamine 0.125 MG Tab.SL SL PRN (13:20)
[2019-03-09] MEDS: HYDROmorphone 2 MG Tab PO PRN ×3 (13:43→20:54)
[2019-03-09] MEDS: VERIFY SCOP PATCH TOP SCH (13:46)
[2019-03-09] MEDS: ceFAZolin 2 GM in Sodium Chloride 0.9% 50 ML IV SCH ×2 (15:13→23:37)
[2019-03-09] MEDS: Acetaminophen 500 MG Tab PO SCH ×2 (15:13→21:02)
[2019-03-09] MEDS ORDERED: ceFAZolin 2 GM in Premix Bag 1 BAG IV SCH (15:30)
[2019-03-09] MEDS: Ketotifen 0.025% Ophth Soln 5 ML Bottle EYEBOTH SCH (20:53)
[2019-03-09] MEDS ORDERED: Amitriptyline 10 MG Tab PO SCH (21:00)
[2019-03-10] MEDS: HYDROmorphone 2 MG Tab PO PRN ×5 (00:13→13:26)
[2019-03-10] MEDS: Acetaminophen 500 MG Tab PO SCH ×2 (03:38→10:21)
[2019-03-10] MEDS ORDERED: Pantoprazole 40 MG Tab.CR PO SCH (07:30)
[2019-03-10] MEDS: ceFAZolin 2 GM in Sodium Chloride 0.9% 50 ML IV SCH (07:33)
[2019-03-10] MEDS: VERIFY SCOP PATCH TOP SCH (08:28)
[2019-03-10] MEDS: Ketotifen 0.025% Ophth Soln 5 ML Bottle EYEBOTH SCH (09:00)
[2019-03-10] MEDS ORDERED: Furosemide 20 MG Tab PO SCH (09:00)
[2019-03-10] MEDS ORDERED: PARoxetine 20 MG Tab PO SCH (09:00)
[2019-03-10] MEDS ORDERED: Aspirin 81 MG Tab.EC PO SCH (09:00)
--- NOTE | 2019-03-10 09:24 | DISCH ---
ADMISSION DIAGNOSES: 1. Incisional hernia. 2. Status post Hannah-en-Y gastric bypass surgery. 3. Unspecified surgical malabsorption. 4. B12 deficiency. 5. Acquired short-bowel syndrome. 6. Migraine without aura. 7. Psoriasis. 8. Primary osteoarthritis involving multiple joints. 9. Chronic bilateral low back pain. 10.Generalized anxiety disorder. DISCHARGE DIAGNOSIS: Open repair of incarcerated incisional hernia with mesh, right lower quadrant on 03/09/2019. Surgeon: Prashanth Gonzalez MD. HISTORY: Blanche eLe is a 63-year-old female with incarcerated incisional hernia. After preoperative evaluation and discussion of possible risks and possible complications, she wished to proceed with surgical procedure. HOSPITAL COURSE: Blanche had her surgery on 03/09/2019. She had no operative complications, and is able to be discharged to home on 03/10/2019. PHYSICAL EXAMINATION: GENERAL: Blanche Lee is a 63-year-old female. VITAL SIGNS: Height is 5 feet 4 inches, weight is 198 pounds. TPR is 97.5, 72, 16, blood pressure 101/63. HEENT: Negative. NECK: Supple. HEART: Regular rate and rhythm. LUNGS: Clear. ABDOMEN: Dressings in the lower right quadrant is dry and intact. EXTREMITIES: Without peripheral edema. DISPOSITION: Discharged to home. CONDITION: Stable and improving. FOLLOWUP APPOINTMENT: Judy Apodaca PA-C, on 03/24/2019 at 10 a.m. HOME MEDICATIONS: Dilaudid 2 mg q.4 hours p.r.n. pain, #40. She is to resume her home medications. DIET: Usual diet as tolerated. Drink 8 to 10 glasses of water a day. ACTIVITY: No lifting greater than 10 pounds for 6 weeks. Other activity; walk 6 times daily inside your home. Driving: Do not drive for 1 week and while on pain medication. Shower/bathing; may shower. Keep operative site clean and dry. DISCHARGE INSTRUCTIONS: Notify provider if any fever, increased pain, nausea, vomiting. Use incentive spirometer 10 times every hour while awake.
[2019-03-10 15:17] VITALS: BP 109/52; PULSE 79
--- NOTE | 2019-03-16 08:04 | OR ---
DATE OF PROCEDURE: 03/09/2019 SURGEON: Prashanth Gonzalez MD PREOPERATIVE DIAGNOSIS: Probable recurrent left inguinal versus incisional hernia. POSTOPERATIVE DIAGNOSIS: Incarcerated incisional hernia located in lower midline. OPERATIVE PROCEDURE: Open repair of incarcerated incisional hernia with mesh (41254, 71008). ANESTHESIA: General. INDICATION FOR PROCEDURE: This is a 63-year-old presenting with a new onset of hernia. This is located in the lower midline in the suprapubic area just to the left of the midline. The patient is status post previous left inguinal hernia repair at that site. The patient has a lower midline incision coming down to the pubic bone at that level, so this may be an incisional hernia versus recurrence of left inguinal hernia. The plan is to proceed with an open repair with mesh plug technique. Potential risks including bleeding and perforation were discussed, and the patient wishes to proceed. DETAILS OF PROCEDURE: The patient was taken to the operating room and placed in a supine position. After general endotracheal anesthesia was induced, the abdomen and groin areas were prepped and draped. Previous left inguinal incision was then used and carried down through the skin and subcutaneous tissue and extended somewhat medially. The was carried down through skin and subcutaneous tissue and through the external oblique aponeurosis. Subaponeurotic flaps were then raised superiorly and inferiorly. Previously-placed mesh plug was then noted to be intact. Medial to this, there was some incarcerated fatty tissue, probably some perivesical fat, which was incarcerated within the hernia located just to the left of the midline. This appeared to be more consistent with an incisional hernia at that location. The area was initially incised and dissection underneath the edges of the fascia and along the pubic bone was then accomplished. An extra-large mesh plug was then placed into the defect. This was affixed initially to the pubic bone some titanium tacking screws; to the underside of the fascia medially, superiorly, and laterally with horizontal mattress sutures of 0 Vicryl stitch. The primary fascial closure over this was then accomplished with 0 Vicryl stitch as well. Following this, the flat portion of the mesh plug system was placed over the area, and the external oblique aponeurosis was approximated with 4-0 Vicryl stitch, as was the subcutaneous tissue. The skin was then closed with 4-0 Vicryl subcuticular stitch. Dressing was applied. The area was anesthetized with 1% lidocaine mixed with Marcaine. The patient was taken to the recovery room in satisfactory condition. There were no evident complications. Physician assistant director of public works, Judy Apodaca, played an essential role in assisting in this case, helping to position the patient, retract structures as needed, as well as suturing and cutting sutures when indicated. Her presence improved patient safety and decreased the operative time. Prashanth Gonzalez MD /[id number]
== END 2019-03-10 15:30 | disposition home or self-care (01) ==
LOC: JP.SDS 06:23 → JP.MS 10:10 → JP.SDS 03-10 15:30
PROVIDERS: ATTEND Surgery
DX: K43.0 Incisional hernia with obstruction, without gangrene (principal); E53.8 Deficiency of other specified B group vitamins; K21.9 Gastro-esophageal reflux disease without esophagitis; K91.2 Postsurgical malabsorption, not elsewhere classified; F41.1 Generalized anxiety disorder; G43.009 Migraine without aura, not intractable, without status migrainosus; L40.9 Psoriasis, unspecified; G89.29 Other chronic pain; M54.5 Low back pain; M15.9 Polyosteoarthritis, unspecified; Z79.82 Long term (current) use of aspirin; Z79.899 Other long term (current) drug therapy
CPT/HCPCS: 36415; 49561; 49568; 82607; 82728; 82746; 83735; 84100; 84425; 94762; A9270; C1713; C1781; J0690; J1100; J1790; J1885; J2020; J2405; J2704; J2710; J3010; J3490; J7042; J7050; J7120; J2185; J2250

== ENCOUNTER 2021-05-19 16:37 | Observation (INO) | payer BC ==
--- NOTE | 2021-05-19 18:43 | EDM.PDOC ---
ED HPI GENERAL MEDICAL PROBLEM - General Stated Complaint: BLOCKAGE IN ESOPHAGUS Time Seen by Provider: 05/19/21 18:20 Source of Information: Reports: Patient, Family History Limitations: Reports: No Limitations - History of Present Illness INITIAL COMMENTS - FREE TEXT/NARRATIVE: 65-year-old female with previous esophageal foreign bodies, past Hannah-en-Y patient presents with an esophageal foreign body, ham, for the past 10 hours. She has tried coke and her other "tricks" that have helped in the past and nothing seems to be helping. She cannot swallow water or saliva. She has a pressure sensation and discomfort in the upper abdomen. No fevers or chills, no back pain. Onset: Sudden (Sudden onset at 10 AM) Duration: Other (8 hours) Location: Reports: Abdomen Associated Symptoms: Reports: Chest Pain (Mild lower chest discomfort). Denies: Shortness of Breath Epigastric Pain Score (Numeric/FACES): 6 - Related Data Allergies Allergy/AdvReac Type Severity Reaction Status Date / Time Penicillins Allergy Intermediate Rash Verified 05/19/21 18:41 benzoin Allergy Rash Verified 05/19/21 18:41 Home Meds: Home Meds Aspirin [Rowena Chewable Aspirin] 81 mg PO DAILY 07/07/13 [History] Cyanocobalamin (Vitamin B-12) [Vitamin B-12] 1,000 mcg PO DAILY 07/07/13 [History] Omeprazole 20 mg PO BID 07/07/13 [History] Acetaminophen [Acetaminophen 8 Hour] 650 mg PO Q6H PRN 10/03/17 [History] Calcium Carbonate/Vitamin D3 [Calcium 500 + Vit D 400] 1 each PO DAILY 10/03/17 [History] Cholecalciferol (Vitamin D3) [Vitamin D3] 5,000 unit PO DAILY 10/03/17 [History] Diclofenac Sodium [Voltaren] 1 applic TP TID PRN 10/03/17 [History] Diphenoxylate HCl/Atropine [Lomotil] 1 tab PO BID PRN 10/03/17 [History] Ferrous Fumarate 1 tab PO DAILY 10/03/17 [History] Fluticasone Propionate [Flonase Allergy Relief] 1 - 2 sprays NS DAILY PRN 10/03/17 [History] Hyoscyamine [Levsin] 0.125 mg SL Q4HR PRN 10/03/17 [History] Magnesium Oxide [Magnesium] 400 mg PO BID 10/03/17 [History] PARoxetine [Paxil] 20 mg PO DAILY 10/03/17 [History] Pediatric Multivit #31/Iron/Fa [Gnp Children's Chewables] 1 each PO BID 10/03/17 [History] Cyclobenzaprine [Flexeril] 10 mg PO BEDTIME PRN 01/15/18 [History] Ketotifen Fumarate [Alaway] 1 drop EYEBOTH BID 01/15/18 [History] Potassium Chloride 20 meq PO DAILY 01/15/18 [History] Amitriptyline [Elavil] 10 mg PO DAILY 03/05/19 [History] Clobetasol Propionate [Temovate Cream] 1 cm TP BID 03/05/19 [History] Furosemide 20 mg PO Q48H 03/05/19 [History] Ondansetron [Zofran ODT] 4 mg PO Q4H PRN 03/05/19 [History] Triamcinolone Acetonide [Triamcinolone Acetonide 0.5%] 1 cm TOP BID 03/05/19 [History] Vitamin B Complex [B Complex] 1 each PO DAILY 03/05/19 [History] estradioL [Estrace 0.01% Vaginal Crm] 1 applic VAG BEDTIME 03/05/19 [History] SUMAtriptan succinate [Imitrex] 25 mg PO ASDIRECTED PRN 03/09/19 [History] Acetaminophen [Tylenol Extra Strength] 1,000 mg PO Q6H tablet 03/10/19 [Rx] HYDROmorphone [Dilaudid] 2 mg PO Q4H PRN #40 tablet 03/10/19 [Rx] Past Medical History HEENT History: Reports: Allergic Rhinitis, Impaired Vision Other HEENT History: wear glasses for close work and reading Cardiovascular History: Reports: Heart Murmur, High Cholesterol Gastrointestinal History: Reports: Bowel Obstruction, Chronic Diarrhea, Colon Polyp, GERD, Hiatal Hernia Genitourinary History: Reports: UTI, Recurrent [employer] History: Reports: , Spontaneous Musculoskeletal History: Reports: Amputation, Back Pain, Chronic, Osteoarthritis Neurological History: Reports: Migraines Psychiatric History: Reports: Anxiety, Depression Endocrine/Metabolic History: Reports: Diabetes, Type II, Obesity/BMI 30+, Other (See Below) Other Endocrine/Metabolic History: diabetic before rny Hematologic History: Reports: Anemia, B12 Deficiency, Blood Transfusion(s), Iron Deficiency Dermatologic History: Reports: Psoriasis - Infectious Disease History Infectious Disease History: Reports: Chicken Pox, Mumps Other Infectious Disease History: pt states would not know - Past Surgical History HEENT Surgical History: Reports: Tonsillectomy Cardiovascular Surgical History: Reports: Other (See Below) Other Cardiovascular Surgeries/Procedures: angiogram in 2014 GI Surgical History: Reports: Appendectomy, Bariatric Procedure, Cholecystectomy, Colon, Colonoscopy, EGD, Esophageal Dilatation, Hernia, Abdominal, Lysis of Adhesions, Ugo Fundoplication, Polypectomy, Small Bowel Female Surgical History: Reports: Section, Tubal Ligation Endocrine Surgical History: Reports: None Neurological Surgical History: Reports: None Musculoskeletal Surgical History: Reports: Amputation, Carpal Tunnel, Other (See Below) Other Musculoskeletal Surgeries/Procedures:: toe surgery Dermatological Surgical History: Reports: None Social & Family History - Family History Family Medical History: No Pertinent Family History HEENT: Reports: Hearing Impairment Other HEENT Family History: mom, brother and sister with hearing aids Cardiac: Reports: Bypass, CAD, High Cholesterol, Hypertension, SD, Stent Respiratory: Reports: Sleep Apnea GI: Reports: None : Reports: None OBGYN: Reports: Other (See Below) Other OBGYN Family History: mom had a hysterectomy Musculoskeletal: Reports: Arthritis Neurological: Reports: Alzheimers Disease, Migraines Psychiatric: Reports: Depression Endocrine/Metabolic: Reports: Diabetes, type II, Hypothyroidism Hematologic: Reports: None Dermatologic: Reports: Psoriasis Oncologic: Reports: Colon, Thyroid - Caffeine Use Caffeine Use: Reports: Coffee ED ROS GENERAL - Review of Systems Review Of Systems: See Below Constitutional: Reports: Malaise. Denies: Fever, Chills HEENT: Reports: Other (Unable to swallow saliva or liquids) Respiratory: Reports: Other (Pressure sensation substernal) Cardiovascular: Reports: No Symptoms GI/Abdominal: Reports: Other (Epigastric discomfort due to esophageal foreign b mary) Skin: Reports: No Symptoms Neurological: Reports: No Symptoms ED EXAM, GI/ABD - Physical Exam Exam: See Below Exam Limited By: No Limitations General Appearance: Alert, Anxious, Other (Looks uncomfortable but not distressed) Eyes: Bilateral: Normal Appearance (Good hydration no jaundice) Throat/Mouth: Normal Inspection Head: Atraumatic Respiratory/Chest: No Respiratory Distress, Lungs Clear Cardiovascular: Regular Rate, Rhythm. No: Tachycardia GI/Abdominal Exam: Normal Bowel Sounds, Soft, Other (Mild discomfort to palpation in the upper abdomen, no focal guarding or rebound) Neurological: Alert, Oriented Psychiatric: Normal Affect, Normal Mood Course - Vital Signs Last Recorded V/S: Last Vital Signs Temp 97.3 F 05/19/21 18:37 Pulse 84 05/19/21 18:37 Resp 16 05/19/21 18:37 BP 124/78 05/19/21 18:37 Pulse Ox 94 L 05/19/21 18:37 - Orders/Labs/Meds Orders: Active Orders 24 hr Category Date Time Status Isolation [COMM] Stat Oth 05/19/21 19:17 Ordered Labs: Laboratory Tests 05/19/21 Range/Units 19:30 Influenza Type A RNA Negative (NEGATIVE) RSV RNA (INAAT) Negative (NEGATIVE) Influenza Type B RNA Negative (NEGATIVE) SARS-CoV-2 RNA (ALFA) Negative (NEGATIVE) - Re-Assessments/Exams Free Text/Narrative Re-Assessment/Exam: 05/19/21 18:41 Discussed the case with Dr. Gonzalez, he asked the patient be admitted on an observation basis and given hydration and pain control over night and if she does not pass this spontaneously an EGD consent will be obtained for procedure in the morning. Orders were written and patient was admitted Departure - Departure Time of Disposition: 19:47 Disposition: Admitted As Inpatient 68 Clinical Impression: Esophageal foreign body Qualifiers: Encounter type: initial encounter Qualified Code(s): T18.108A - Unspecified foreign body in esophagus causing other injury, initial encounter - Discharge Information Sepsis Event Note (ED) - Focused Exam Vital Signs: Vital Signs Temp Pulse Resp BP Pulse Ox 05/19/21 18:37 97.3 F 84 16 124/78 94 L 05/19/21 17:51 97.3 F 84 16 124/78 94 L - My Orders Last 24 Hours: My Active Orders 05/19/21 19:17 Isolation [COMM] Stat - Assessment/Plan Last 24 Hours: My Active Orders 05/19/21 19:17 Isolation [COMM] Stat
[2021-05-19 20:09] LABS: CORONAVIRUS COVID-19 NAA NEGATIVE (NEGATIVE)
[2021-05-19] MEDS ORDERED: LORazepam 2 MG/ML SDV IVPUSH PRN (20:59)
[2021-05-19] MEDS: Dextrose 5%-Lactated Ringers 1,000 ML IV SCH (21:03)
[2021-05-19] MEDS: Ondansetron 4 MG/2 ML SDV IVPUSH PRN (21:10)
[2021-05-19] MEDS: HYDROmorphone 0.5 MG/0.5 ML Syringe IVPUSH PRN (21:15)
[2021-05-19] MEDS ORDERED: Pantoprazole 40 MG Vial IVPUSH ONE (21:16)
[2021-05-20] MEDS: HYDROmorphone 0.5 MG/0.5 ML Syringe IVPUSH PRN (01:53)
[2021-05-20] MEDS: Ondansetron 4 MG/2 ML SDV IVPUSH PRN ×2 (01:58→07:57)
[2021-05-20] MEDS: Dextrose 5%-Lactated Ringers 1,000 ML IV SCH (02:00)
[2021-05-20] MEDS ORDERED: Midazolam 1 MG/ML 2 ML SDV ONE (07:44)
[2021-05-20] MEDS ORDERED: fentaNYL 100 MCG/2 ML SDV ONE (07:44)
[2021-05-20] MEDS ORDERED: Propofol 200 MG/20 ML SDV ONE ×2 (07:44→09:25)
[2021-05-20] MEDS ORDERED: Acetaminophen 1,000 MG in Premix Bag 1 BAG IV ONE (08:00)
[2021-05-20] MEDS ORDERED: Glycopyrrolate 0.2 MG/ML 2 ML SDV IVPUSH ONE (09:00)
[2021-05-20 10:52] VITALS: BP 109/61; PULSE 87
--- NOTE | 2021-05-21 09:10 | OR ---
DATE OF PROCEDURE: 05/20/2021 SURGEON: Prashanth Gonzalez MD PREOPERATIVE DIAGNOSIS: Meat impacted at gastrojejunostomy. POSTOPERATIVE DIAGNOSIS: Meat impacted at gastrojejunostomy. OPERATIVE PROCEDURE: Upper GI endoscopy with: 1. Dilation of gastrojejunostomy. 2. Removal of foreign body within distal esophagus and gastric pouch. ANESTHESIA: IV sedation. INDICATIONS FOR PROCEDURE: The patient is remotely status post Hannah-en-Y gastric bypass, who was eating some ham yesterday when she developed a picture of food obstruction and was admitted overnight for a planned upper endoscopy with removal of meat that is still present and any dilations as indicated. Potential risks of the procedure including bleeding, perforation, aspiration of the impacted contents were reviewed, and the patient wishes to proceed. DETAILS OF PROCEDURE: The patient was taken to the operating room, placed in a left lateral decubitus position. IV sedation was administered after which the upper GI endoscope was passed orally through the length of the esophagus into the distal esophagus and gastric pouch, then there was a large amount of diced ham. This was eventually broken up to some extent. At that point, gastrointestinal catheter was then placed across the gastrojejunostomy and inflated to 45-Kiswahili size. This allowed the scope to be passed up around the food and into the jejunum. This then allowed the foreign body to be removed sequentially moving the impacted food from the distal esophagus and pouch into the jejunum, and at that point, no further problems were noted. Scope was withdrawn. Procedure was concluded. There were no evident complications. Prashanth Gonzalez MD /[id number]
== END 2021-05-20 14:45 | disposition home or self-care (01) ==
LOC: JP.ED 16:37 → JP.MS 20:05
PROVIDERS: ADMIT Surgery; ATTEND Surgery
DX: K91.89 Other postprocedural complications and disorders of digestive system (principal); T18.128A Food in esophagus causing other injury, initial encounter; E78.00 Pure hypercholesterolemia, unspecified; K21.9 Gastro-esophageal reflux disease without esophagitis; N39.0 Urinary tract infection, site not specified; E11.9 Type 2 diabetes mellitus without complications; E66.9 Obesity, unspecified; F41.9 Anxiety disorder, unspecified; F32.A Depression, unspecified; Z20.822 Contact with and (suspected) exposure to COVID-19; Z98.890 Other specified postprocedural states; Z88.0 Allergy status to penicillin; Z88.8 Allergy status to other drugs, medicaments and biological substances; Z79.82 Long term (current) use of aspirin; Z79.899 Other long term (current) drug therapy
CPT/HCPCS: 0241U; 43247; 96365; 96375; 96376; 99284; C9113; G0378; J0131; J1170; J2250; J2405; J2704; J3010; J3490; J7121

== ENCOUNTER 2022-02-26 06:00 | Inpatient (IN) | payer BC ==
[2022-02-26] MEDS ORDERED: Neostigmine Methylsulfate 1 MG/ML 5 ML Syringe ONE (08:00)
[2022-02-26] MEDS ORDERED: Ketamine 16 MG in Sodium Chloride 0.9% 19.84 ML IV SCH (08:00)
[2022-02-26] MEDS ORDERED: Succinylcholine 200 MG/10 ML MDV ONE (08:00)
[2022-02-26] MEDS ORDERED: fentaNYL 100 MCG/2 ML SDV ONE ×3 (08:00)
[2022-02-26] MEDS ORDERED: Rocuronium 50 MG/5 ML Vial ONE (08:00)
[2022-02-26] MEDS ORDERED: Glycopyrrolate 0.2 MG/ML 5 ML MDV ONE (08:00)
[2022-02-26] MEDS ORDERED: HYDROmorphone/Normal Saline 6 MG/30 ML PCA Vial ONE (08:00)
[2022-02-26] MEDS ORDERED: Ropivacaine 50 ML, dexAMETHasone 8 MG, EPINEPHrine 0.4 MG, Sodium Chloride 0.9% 27.6 ML NERVRT SCH ×4 (08:00)
[2022-02-26] MEDS ORDERED: Ondansetron 4 MG/2 ML SDV ONE (08:00)
[2022-02-26] MEDS ORDERED: Meropenem 500 MG SDV ONE (08:00)
[2022-02-26] MEDS ORDERED: Dexamethasone 4 MG/ML SDV ONE (08:00)
[2022-02-26] MEDS ORDERED: Ketamine 500 MG/5 ML MDV IV SCH (08:00)
[2022-02-26] MEDS ORDERED: Lactated Ringers 1,000 ML IV ONE (08:00)
[2022-02-26] MEDS ORDERED: Propofol 200 MG/20 ML SDV ONE ×2 (08:00)
[2022-02-26] MEDS ORDERED: Celecoxib 200 MG Cap PO ONE (08:05)
[2022-02-26] MEDS ORDERED: Acetaminophen 500 MG Tab PO ONE (08:05)
[2022-02-26] MEDS ORDERED: Scopolamine 1.5 MG Transdermal Patch TRDERM ONE (08:10)
[2022-02-26] MEDS ORDERED: Dextrose 5%-Lactated Ringers 1,000 ML IV SCH (09:05)
[2022-02-26] MEDS ORDERED: cefOXitin 2 GM in Sodium Chloride 0.9% 50 ML IV ONE ×3 (09:50→22:15)
[2022-02-26] MEDS ORDERED: HYDROmorphone/Normal Saline 6 MG/30 ML PCA Vial IV ONE (13:09)
[2022-02-26] MEDS ORDERED: Dextrose 5%-Lactated Ringers 1,000 ML with MVI, Adult with Vitamin K 10 ML, Zinc/Copper... IV ONE ×4 (13:10)
[2022-02-26] MEDS ORDERED: Dextrose 5%-Lactated Ringers 1,000 ML IV ONE ×2 (13:10→22:15)
[2022-02-26] MEDS ORDERED: Sodium Ferric Gluconate Cmplex 250 MG in Sodium Chloride 0.9% 100 ML IV ONE (16:07)
[2022-02-26] MEDS ORDERED: Pantoprazole 40 MG Vial ONE (22:15)
[2022-02-26] MEDS ORDERED: Amitriptyline 10 MG Tab ONE (22:15)
[2022-02-27] MEDS ORDERED: HYDROmorphone/Normal Saline 6 MG/30 ML PCA Vial IV ONE ×2 (02:56→17:30)
[2022-02-27] MEDS ORDERED: cefOXitin 2 GM in Sodium Chloride 0.9% 50 ML IV ONE ×3 (04:20→15:15)
[2022-02-27] MEDS ORDERED: Dextrose 5%-Lactated Ringers 1,000 ML IV ONE (07:30)
[2022-02-27] MEDS ORDERED: Amitriptyline 10 MG Tab ONE (09:00)
[2022-02-27] MEDS ORDERED: PARoxetine 20 MG Tab ONE (09:00)
[2022-02-27] MEDS ORDERED: Celecoxib 200 MG Cap ONE ×2 (09:00)
[2022-02-27] MEDS ORDERED: Furosemide 20 MG Tab ONE (09:00)
[2022-02-27] MEDS ORDERED: Potassium Chloride 20 MEQ Tab.ER ONE (09:00)
[2022-02-27] MEDS ORDERED: Pantoprazole 40 MG Vial ONE (09:00)
[2022-02-27] MEDS ORDERED: Heparin Sodium 5,000 Units/ML Vial ONE ×2 (09:00)
[2022-02-27] MEDS ORDERED: Sodium Ferric Gluconate Cmplex 250 MG in Sodium Chloride 0.9% 100 ML IV ONE (15:20)
[2022-02-27] MEDS ORDERED: Dextrose 5%-Lactated Ringers 1,000 ML with MVI, Adult with Vitamin K 10 ML, Zinc/Copper... IV ONE ×4 (15:50)
[2022-02-28] MEDS ORDERED: Dextrose 5%-Lactated Ringers 1,000 ML IV ONE (01:55)
[2022-02-28] MEDS ORDERED: Furosemide 20 MG Tab ONE (09:00)
[2022-02-28] MEDS ORDERED: Celecoxib 200 MG Cap ONE ×2 (09:00)
[2022-02-28] MEDS ORDERED: PARoxetine 20 MG Tab ONE (09:00)
[2022-02-28] MEDS ORDERED: Amitriptyline 10 MG Tab ONE (09:00)
[2022-02-28] MEDS ORDERED: Potassium Chloride 20 MEQ Tab.ER ONE (09:00)
[2022-02-28] MEDS ORDERED: Heparin Sodium 5,000 Units/ML Vial ONE ×2 (09:00)
[2022-02-28] MEDS ORDERED: HYDROmorphone 2 MG Tab PO ONE ×2 (09:25→16:35)
[2022-02-28] MEDS ORDERED: Cyanocobalamin (Vitamin B12) 1,000 MCG/ML SDV IM ONE (10:55)
[2022-02-28] MEDS ORDERED: Pantoprazole 40 MG Tab.CR PO ONE (13:37)
[2022-03-01] MEDS ORDERED: HYDROmorphone 2 MG Tab PO ONE ×3 (01:21→13:00)
[2022-03-01] MEDS ORDERED: Potassium Chloride 20 MEQ Tab.ER ONE (09:00)
[2022-03-01] MEDS ORDERED: Celecoxib 200 MG Cap ONE (09:00)
[2022-03-01] MEDS ORDERED: PARoxetine 20 MG Tab ONE (09:00)
[2022-03-01] MEDS ORDERED: Furosemide 20 MG Tab ONE (09:00)
[2022-03-01] MEDS ORDERED: Cyanocobalamin (Vitamin B12) 1,000 MCG/ML SDV IM ONE (13:00)
[2022-03-01] MEDS ORDERED: Pantoprazole 40 MG Tab.CR PO ONE (13:20)
== END 2022-03-01 14:20 | disposition home or self-care (01) | DRG 220 ==
LOC: JP.SDS 06:00 → JP.ZCENSUS 07:00
PROVIDERS: ADMIT Surgery; ATTEND Surgery
PROC: 0WUF0JZ Supplement Abdominal Wall with Synthetic Substitute, Open Approach (ICD-10-PCS; principal; 2022-02-26)
PROC: 3E0M05Z Introduction of Adhesion Barrier into Peritoneal Cavity, Open Approach (ICD-10-PCS; 2022-02-26)
PROC: 8E0W0CZ Robotic Assisted Procedure of Trunk Region, Open Approach (ICD-10-PCS; 2022-02-26)
PROC: 0DBW0ZZ Excision of Peritoneum, Open Approach (ICD-10-PCS; 2022-02-26)
PROC: 0DB60ZZ Excision of Stomach, Open Approach (ICD-10-PCS; 2022-02-26)
DX: K43.0 Incisional hernia with obstruction, without gangrene (principal); K21.9 Gastro-esophageal reflux disease without esophagitis; Z86.16 Personal history of COVID-19; F41.1 Generalized anxiety disorder; Z79.899 Other long term (current) drug therapy; Z88.0 Allergy status to penicillin; Z88.8 Allergy status to other drugs, medicaments and biological substances
CPT/HCPCS: 88302; 88305; 88307; 93005; 94762; A9270-GY; C1713; C1781; C9113; J0171; J0330; J0694; J1100; J1170; J1644; J2020; J2185; J2405; J2704; J2710; J2795; J2916; J3010; J3411; J3420; J3490; J7120; J7121

== ENCOUNTER 2023-03-31 08:26 | Day surgery (SDC) | payer BC ==
[~2023-03-31 08:26] MED LIST: Midazolam 1 MG/ML 2 ML SDV ONE; Propofol 200 MG/20 ML SDV ONE; fentaNYL 100 MCG/2 ML SDV ONE
[2023-03-31] MEDS ORDERED: Lactated Ringers 1,000 ML IV SCH (09:00)
[2023-03-31] MEDS ORDERED: Cyanocobalamin (Vitamin B12) 1,000 MCG/ML SDV IM ONE (09:50)
[2023-03-31] MEDS ORDERED: MVI, Adult with Vitamin K 10 ML, Thiamine 200 MG, Chromium/Copper/Mang/Selen/Zn 1 ML in... IV ONE ×4 (10:30)
[2023-03-31 11:20] VITALS: BP 114/49; PULSE 75
== END 2023-03-31 12:36 | disposition home or self-care (01) ==
LOC: JP.SDS 08:26
PROVIDERS: ATTEND Student in an Organized Health Care Education/Training Program
DX: K31.7 Polyp of stomach and duodenum (principal); K21.9 Gastro-esophageal reflux disease without esophagitis; F41.9 Anxiety disorder, unspecified; E66.01 Morbid (severe) obesity due to excess calories; Z79.899 Other long term (current) drug therapy; Z88.0 Allergy status to penicillin
CPT/HCPCS: J2250; J2704; J3010; J3411; J3420; J7120

== ENCOUNTER 2023-11-18 08:03 | Day surgery (SDC) | payer BC ==
[~2023-11-18 08:03] MED LIST changes: +Cyanocobalamin (Vitamin B12) 1,000 MCG/ML SDV IM ONE; +Lactated Ringers 1,000 ML IV SCH; +MVI, Adult with Vitamin K 10 ML, Thiamine 200 MG, Zinc/Copper/Manganese/Selenium 1 ML i... IV ONE; -Midazolam 1 MG/ML 2 ML SDV ONE; -Propofol 200 MG/20 ML SDV ONE; -fentaNYL 100 MCG/2 ML SDV ONE
[2023-11-18] MEDS ORDERED: Lactated Ringers 1,000 ML IV SCH (08:30)
[2023-11-18] MEDS: Cyanocobalamin (Vitamin B12) 1,000 MCG/ML SDV IM ONE (08:49)
[2023-11-18] MEDS: Ondansetron 4 MG/2 ML SDV IVPUSH ONE (08:49)
[2023-11-18] MEDS: Lactated Ringers 1,000 ML IV SCH (08:59)
[2023-11-18] MEDS ORDERED: Propofol 200 MG/20 ML SDV ONE (09:13)
[2023-11-18] MEDS ORDERED: fentaNYL 100 MCG/2 ML SDV ONE (09:13)
[2023-11-18] MEDS ORDERED: MVI, Adult with Vitamin K 10 ML, Thiamine 200 MG, Zinc/Copper/Manganese/Selenium 1 ML i... IV ONE (09:30)
[2023-11-18] MEDS: MVI, Adult with Vitamin K 10 ML, Thiamine 200 MG, Zinc/Copper/Manganese/Selenium 1 ML i... IV ONE (10:19)
[2023-11-18 10:46] VITALS: BP 114/70; PULSE 71
== END 2023-11-18 12:23 | disposition home or self-care (01) ==
LOC: JP.SDS 08:03
PROVIDERS: ATTEND Surgery
DX: K22.2 Esophageal obstruction (principal); Z98.84 Bariatric surgery status
CPT/HCPCS: 43239; 43249; C1726; J2405; J2704; J3010; J3411; J3420; J7120; 00731-QZ; J3490

== ENCOUNTER 2025-01-26 07:04 | Day surgery (SDC) | payer BC ==
[2025-01-26] MEDS: Lactated Ringers 1,000 ML IV SCH (07:31)
[2025-01-26] MEDS ORDERED: fentaNYL 50 MCG/ML SDV ONE (07:33)
[2025-01-26] MEDS ORDERED: Midazolam 1 MG/ML 2 ML SDV ONE (07:33)
[2025-01-26] MEDS ORDERED: Propofol 200 MG/20 ML SDV ONE (07:34)
[2025-01-26] MEDS: Scopalamine 1mg/3day Transdermal Patch TOP SCH (07:35)
[2025-01-26 11:06] VITALS: BP 98/44; PULSE 69
== END 2025-01-26 10:30 | disposition home or self-care (01) ==
LOC: JP.SDS 07:04
PROVIDERS: ATTEND Surgery
DX: K22.89 Other specified disease of esophagus (principal); Z98.0 Intestinal bypass and anastomosis status; R13.10 Dysphagia, unspecified; E66.9 Obesity, unspecified; Z88.0 Allergy status to penicillin; Z88.8 Allergy status to other drugs, medicaments and biological substances; Z68.30 Body mass index [BMI] 30.0-30.9, adult; Z79.899 Other long term (current) drug therapy
CPT/HCPCS: 43239; 43245; 88305; A9270; C1726; J2250; J2704; J3010; J7120; 00731-QZ